=== PATIENT | female | born 1950 | race Caucasian/White ===

== ENCOUNTER 2017-03-23 15:52 | Inpatient (IN) | payer MEDICARE, MEDICAID ==
[~2017-03-23] VITALS: Ht 167.6 cm; Wt 79.2 kg
[~2017-03-23 15:52] MED LIST: ASPIRIN; DEPAKOTE PO; FURO20TA90
[2017-03-23] MEDS ORDERED: ACET325T53 PO (16:16)
[2017-03-23] MEDS ORDERED: MAGN400O6 PO (16:16)
[2017-03-23] MEDS ORDERED: TOPI50TA PO (16:16)
[2017-03-23] MEDS ORDERED: SPIR25TA PO (16:16)
[2017-03-23] MEDS ORDERED: ZOLP5TAB2 PO (16:16)
[2017-03-23] MEDS ORDERED: DIVA500T2 PO (16:16)
[2017-03-23] MEDS ORDERED: RISP3TAB5 PO (16:16)
[2017-03-23] MEDS ORDERED: VENL37.55 PO (16:16)
[2017-03-23] MEDS ORDERED: HYDR-552 PO (16:16)
[2017-03-23] MEDS ORDERED: DOCU-141 PO (16:16)
[2017-03-23] MEDS ORDERED: NA P133E RC (16:16)
[2017-03-23] MEDS ORDERED: BISA10SU12 RC (16:16)
[2017-03-23] MEDS ORDERED: LORA2TAB95 PO (16:16)
[2017-03-23 16:51] LABS: CREATININE 0.7 mg/dL (0.6-1.3); POTASSIUM 4.1 mmol/L (3.5-5.1)
[2017-03-23 16:56] LABS: BASOPHILS % (AUTO) 0.2 % (0.0-2.0); EOSINOPHILS % (AUTO) 0.1 % (0.0-7.0); HEMATOCRIT 40.5 % (37-47); HEMOGLOBIN 13.5 G/DL (12.0-16.0); LYMPHOCYTES # (AUTO) 0.7 K/UL (0.8-4.8); LYMPHOCYTES % (AUTO) 4.6 % (20.5-51.5); MEAN CORPUSCULAR HEMOGLOBIN 30.9 UUG (27.0-31.0); MEAN CORPUSCULAR HGB CONC 33 g/dL (32.0-37.0); MEAN CORPUSCULAR VOLUME 92.8 FL (81.0-99.0); MONOCYTES # (AUTO) 2.1 K/UL (0.1-1.30); MONOCYTES % (AUTO) 14.1 % (0.0-11.0); NEUTROPHILS # (AUTO) 12.1 K/UL (1.8-8.9); PLATELET COUNT (AUTO) 224 K/UL (150-450); RED BLOOD CELL COUNT(AUTO) 4.36 MIL/UL (4.2-5.4); WHITE BLOOD COUNT (AUTO) 14.9 K/UL (4.0-11.2)
[2017-03-23 17:04] LABS: BILIRUBIN,DIRECT 0.1 mg/dL (0.0-0.2); BILIRUBIN,TOTAL 0.3 mg/dL (0.2-1.0); TOTAL PROTEIN, SERUM 7.2 g/dL (6.4-8.2)
--- NOTE | 2017-03-23 17:11 | NUR ---
JONATHAN FROM SNF. PT IS A OBESE 66 Y/O FEMALE. ARRIVED VIA GURNEY. UNABLE TO AMBULATE. PT IS BED BOUND. VSS. HERE FOR: FEVER, WAS GIVEN TYLENOL 650MG PO AT THE SNF PRIOR TO ARRIVAL. +FEVER, +DIAPHORETIC, SKIN IS INTACT, +COUGH. A/O X 1 [NAME]. SPEAKING IN SLOW SENTENCES, GENERALIZED WEAKNESS NOTED. PT IS INCONTINENT. LAB COLLECTED AND SENT. MEDICATION INFUSING ORDERED. WCTM PT AT THIS TIME. WAITING FOR FURTHER PLAN OF CARE
--- NOTE | 2017-03-23 18:25 | NUR ---
REPORT GIVEN TO HAILEY AWARE OF PT'S CURRENT CONDITION. WILL CONTINUE PLAN OF CARE
[2017-03-23 18:31] LABS: *BILIRUBIN,URIN NEGATIVE (NEGATIVE); *BLOOD, URINE NEGATIVE (NEGATIVE); *COLOR,URINE YELLOW (YELLOW); *KETONES,URINE TRACE (NEGATIVE); *PROTEIN,URINE NEGATIVE (NEGATIVE); LEUKOCYTE ESTERASE ,URINE NEGATIVE (NEGATIVE); NITRITE, URINE NEGATIVE (NEGATIVE); UGLUCOSE NEGATIVE (NEGATIVE)
[2017-03-23 18:32] LABS: *CLARITY,URINE SLIGHTLY HAZY (CLEAR)
[2017-03-23 18:36] LABS: BACTERIA,URINE FEW /HPF (NONE SEEN); MUCUS,URINE MANY /LPF (0-FEW); RBC,URINE 0-3 /HPF (0-3); SQUAMOUS EPITHELIAL CELL,UR MODERATE /HPF (NONE SEEN)
[2017-03-23 18:45] LABS: BAND % (MANUAL) 19 % (0-10); LYMPHOCYTES % (MANUAL) 6 % (20-40); MONOCYTES % (MANUAL) 11 % (2-10); NEUTROPHILS % (MANUAL) 64 % (42-75)
[2017-03-23 18:57] VITALS: BP 97/54
--- NOTE | 2017-03-23 19:00 | NUR ---
Pt alert to self with periods of confusion. Temp noted 99.3. BP 102/40. Denies any pain, headaches, or shortness of breathe at this time. Sinus rhythm. On Oxygen via n/c 3L 96% o2 sat. Awaiting orders from MD at this time.
[2017-03-23 20:00] VITALS: BP 102/40
--- NOTE | 2017-03-23 21:00 | NUR ---
director mobile media solutions dr Herron gave orders via telephone. Noted and carried out.
--- NOTE | 2017-03-23 22:30 | NUR ---
Temp noted 101.2. BP 109/37. Phone call made for Dr Herron. was paged and awaiting orders at this time. Pt received breathing tx at this time. HOB elevated and call light placed within reach.
--- NOTE | 2017-03-23 23:30 | NUR ---
Cooling and comfort measures applied at this time. Pt able to drink water without difficulty. No new orders at this time from Dr. Weiss.
[2017-03-24] VITALS: BP 110/67
--- NOTE | 2017-03-24 02:30 | NUR ---
Temp 98.1. No s/s of acute distress. Continue to monitor.
[2017-03-24 04:00] VITALS: BP 109/41
--- NOTE | 2017-03-24 05:25 | NUR ---
Pt asleep at this time. Temp 97.9. BP 109/41. No s/s of acute distress. Noted with present non productive cough. Continuing routine breathing tx QID. Encouraged fluids with HOB 30 degrees. Continue to monitor. No new orders at this time.
--- NOTE | 2017-03-24 07:25 | NUR ---
Received report from night warehouse manager nurse, patient in bed awake, laughing hysterically. Bed in low position, side rails up x2. No evidence of distress noted.
[2017-03-24 08:51] LABS: CREATININE 0.7 mg/dL (0.6-1.3); MAGNESIUM 1.9 mg/dL (1.8-2.4); PHOSPHOROUS 3.2 mg/dL (2.5-4.9); POTASSIUM 3.9 mmol/L (3.5-5.1)
[2017-03-24 09:15] LABS: EOSINOPHILS % (AUTO) 0.3 % (0.0-7.0); HEMOGLOBIN 12.2 g/dL (10.9-14.3); MEAN CORPUSCULAR HGB CONC 34 g/dL (32.3-35.6)
[2017-03-24 09:30] LABS: BASOPHILS % (AUTO) 0.2 % (0.0-2.0); HEMATOCRIT 35.4 % (31.2-41.9); LYMPHOCYTES # (AUTO) 1.5 K/uL (20.0-40.0); LYMPHOCYTES % (AUTO) 11.6 % (20.5-51.5); MEAN CORPUSCULAR VOLUME 92.8 fL (75.5-95.3); MONOCYTES # (AUTO) 1.6 K/uL (2.0-10.0); MONOCYTES % (AUTO) 12.5 % (0.0-11.0); NEUTROPHILS # (AUTO) 9.9 K/uL (1.8-8.9); NEUTROPHILS % (AUTO) 75.4 % (38.5-71.5); RED BLOOD CELL COUNT(AUTO) 3.82 MIL/uL (3.63-4.92); WHITE BLOOD COUNT (AUTO) 13.1 K/uL (3.8-11.8)
[2017-03-24 09:36] LABS: PLATELET COUNT (AUTO) 214 K/uL (179-408)
[2017-03-24 12:07] VITALS: BP 97/62
[2017-03-24 16:44] VITALS: BP 90/41
--- NOTE | 2017-03-24 18:38 | NUR ---
Patient has been cooperative with treatment plan, placed on first step mattress to preserve skin. Patient had one episode of severe generalized pain, norco relieved pain, and patient is resting in bed, no evidence of distress, bed in low [id number], side rails up x2.
--- NOTE | 2017-03-24 19:30 | NUR ---
SHIFT REPORT RECEIVED FROM PREVIOUS SHIFT NURSE. PATIENT ASLEEP. NO SIGNS OF DISTRESS. VSS. BED IN LOCKED POSITION, SIDE-RAILS UP. SAFETY AND COMFORT PROVIDED TO PATIENT.
--- NOTE | 2017-03-25 07:25 | NUR ---
Received report from material handler 1st shift nurse, patient in bed sleeping. No evidence of distress noted, bed in low position, side rails up x2.
[2017-03-25 11:16] VITALS: BP 105/50
[2017-03-25 15:09] VITALS: BP 106/63
--- NOTE | 2017-03-25 19:04 | NUR ---
Patient has been compliant with medications, no evidence of distress noted. No shortness of breath, no pain reported. Bed is in low position, side rails up x2. All needs met, oral care provided every two hours along with turning and repositioning. Patient is still on isolation.
[2017-03-25 20:00] VITALS: BP 126/48
--- NOTE | 2017-03-25 20:00 | NUR ---
Pt a/o to self and with periods of confusion. No active s/s of acute distress. V/s are WNL. HOB elevated 30 degrees. Bed locked in low position with 2 side rails up. Denies any pain at this time.
--- NOTE | 2017-03-26 00:37 | NUR ---
Pt requested medication for sleep. Ambien 5mg given PO. No reaction to current antibiotic Zithromycin therapy. Continue to monitor.
[2017-03-26 06:00] VITALS: BP 113/51
[2017-03-26 06:40] LABS: BASOPHILS % (AUTO) 0.1 % (0.0-2.0); EOSINOPHILS # (AUTO) 0.5 K/uL (0.0-0.7); EOSINOPHILS % (AUTO) 3.9 % (0.0-7.0); LYMPHOCYTES # (AUTO) 1.9 K/UL (0.8-4.8); LYMPHOCYTES % (AUTO) 16.2 % (20.5-51.5); MEAN CORPUSCULAR HEMOGLOBIN 32.2 UUG (27.0-31.0); MEAN CORPUSCULAR HGB CONC 34 g/dL (32.0-37.0); MEAN CORPUSCULAR VOLUME 93.6 FL (81.0-99.0); MONOCYTES # (AUTO) 1.2 K/UL (0.1-1.30); MONOCYTES % (AUTO) 10.1 % (0.0-11.0); NEUTROPHILS # (AUTO) 8.1 K/UL (1.8-8.9); NEUTROPHILS % (AUTO) 69.7 % (38.5-71.5); WHITE BLOOD COUNT (AUTO) 11.7 K/UL (4.0-11.2)
[2017-03-26 06:51] LABS: RED BLOOD CELL COUNT(AUTO) 3.51 MIL/UL (4.2-5.4)
[2017-03-26 06:52] LABS: HEMATOCRIT 32.9 % (37-47); HEMOGLOBIN 11.3 G/DL (12.0-16.0); PLATELET COUNT (AUTO) 290 K/UL (150-450)
[2017-03-26 06:55] LABS: BILIRUBIN,TOTAL 0.2 mg/dL (0.2-1.0); CREATININE 0.7 mg/dL (0.6-1.3); MAGNESIUM 1.9 mg/dL (1.8-2.4); PHOSPHOROUS 4.3 mg/dL (2.5-4.9); POTASSIUM 4.6 mmol/L (3.5-5.1); TOTAL PROTEIN, SERUM 6.5 g/dL (6.4-8.2)
--- NOTE | 2017-03-26 07:30 | NUR ---
RECEIVED REPORT FROM INTERIOR DECORATOR PAPERHANGING NURSE, PATIENT IN BED ASLEEP, NO EVIDENCE OF DISTRESS NOTED, BED IN LOW POSITION SIDE RAILS UP X2.
[2017-03-26 10:08] LABS: BAND % (MANUAL) 17 % (0-10); EOSINOPHILS % (MANUAL) 5 % (0-8); LYMPHOCYTES % (MANUAL) 22 % (20-40); MONOCYTES % (MANUAL) 8 % (2-10); NEUTROPHILS % (MANUAL) 48 % (42-75)
[2017-03-26 11:09] VITALS: BP 112/65
--- NOTE | 2017-03-26 13:00 | NUR ---
Removed fletcher catheter per Dr. Serna.
--- NOTE | 2017-03-26 15:14 | NUR ---
Patient voided large amount in diaper. Void trial complete.
[2017-03-26 15:15] VITALS: BP 110/65
--- NOTE | 2017-03-26 18:30 | NUR ---
Patient became agitated and started talking about being in a ship and feeling like she is drowning. She started yelling and wanted help to be saved. Administered Ativan to help alleviate the anxiety she was experiencing.
--- NOTE | 2017-03-26 19:30 | NUR ---
Pt alert, awake, in room in no acute distress. RT in room with pt's HOB elevated 30 degrees. Denies any pain or discomfort. Continue to monitor.
[2017-03-26 20:38] VITALS: BP 100/58
--- NOTE | 2017-03-27 00:03 | NUR ---
Pt asleep. No distress noted. Earlier pt asked to do not wake her up for tx. HHN tx not given. MISSAEL Morrison notified.
--- NOTE | 2017-03-27 00:42 | NUR ---
Pt asleep in room with no pain. [place] PRN effective. No s/s of reaction to current Zithromycin therapy. Pt repositioned. Continue to monitor.
--- NOTE | 2017-03-27 03:45 | NUR ---
Pt asleep. No distress noted. HHN tx not given. RN Prince notified.
--- NOTE | 2017-03-27 05:07 | NUR ---
Pt in room asleep with no s/s of rest distress. BP 143/64. )2 97% RA. Pt repositioned. No reaction to current Zithromycin
[2017-03-27 06:00] VITALS: BP 143/64
--- NOTE | 2017-03-27 07:30 | NUR ---
RECEIVED REPORT FROM INSURANCE RATER NURSE, PATIENT IN BED SLEEPING, NO EVIDENCE OF DISTRESS NOTED. BED IN LOW POSITION, SIDE RAILS UP X2.
[2017-03-27] MEDS ORDERED: AZIT250T6 PO (08:13)
[2017-03-27] MEDS ORDERED: OSEL75CA PO (08:13)
[2017-03-27] MEDS ORDERED: CEFA250C PO (08:13)
[2017-03-27 12:07] VITALS: BP 104/41
[2017-03-27 16:02] VITALS: BP 84/30
--- NOTE | 2017-03-27 17:10 | NUR ---
REPORT CALLED TO [facility], ALL DISHCARGE TEACHING PERFORMED, CLIENT'S BELONGINGS SENT HOME WITH OPEN TENTER OPERATOR. PATIENT IS IN NO EVIDENT DISTRESS, PAIN OR SHORTNESS OF BREATH. 5PM MEDICATIONS ADMINISTERED PRIOR TO DISCHARGE.
== END 2017-03-27 17:00 | DRG 193 ==
LOC: ER 15:53 → TELE 18:35 → MED 03-24 21:01
PROVIDERS: ADMIT Internal Medicine; ATTEND Internal Medicine
DX: J10.01 Influenza due to other identified influenza virus with the same other identified influenza virus pneumonia (principal); E43 Unspecified severe protein-calorie malnutrition; I11.0 Hypertensive heart disease with heart failure; F03.90 Unspecified dementia, unspecified severity, without behavioral disturbance, psychotic disturbance, mood disturbance, and anxiety; I50.9 Heart failure, unspecified; E87.1 Hypo-osmolality and hyponatremia; F25.0 Schizoaffective disorder, bipolar type; Z87.820 Personal history of traumatic brain injury; I73.9 Peripheral vascular disease, unspecified; G40.909 Epilepsy, unspecified, not intractable, without status epilepticus; F41.9 Anxiety disorder, unspecified; Z79.899 Other long term (current) drug therapy; Z90.710 Acquired absence of both cervix and uterus; Z68.28 Body mass index [BMI] 28.0-28.9, adult; R26.89 Other abnormalities of gait and mobility; Z87.440 Personal history of urinary (tract) infections
CPT/HCPCS: 36415; 70030-TC; 71010; 80164; 83605; 83735; 84100; 84443; 85025; 85730; 87040; 87086; 87400; 93005; 94640; 94664; A4663; J0456; J0696; J3590; J7030; J7040; J7060